=== PATIENT | male | born 1940 | race Caucasian/White ===

== ENCOUNTER 2021-11-28 20:23 | Emergency (ER) | payer MEDICARE, OTHER ==
[~2021-11-28] VITALS: Ht 188 cm; Wt 89.0 kg
[~2021-11-28 20:23] MED LIST: ASPIRIN EC81 MG PO; ATORVASTATIN CA20 MG PO; FOSINOPRIL SODI40 MG PO; HYDROCHLOROTH12.5 MG PO; NORVASC10 MG PO; PRILOSEC20 MG PO
[2021-11-28] MEDS ORDERED: TAMSULOSIN HCL0.4 MG PO (20:42)
[2021-11-28] MEDS ORDERED: MIRTAZAPINE7.5 MG PO (20:43)
[2021-11-28] MEDS ORDERED: CITALOPRAM HBR20 MG PO (20:44)
[2021-11-28] MEDS ORDERED: PAXLOVID CO-PA1 EAC1 PO (21:14)
== END 2021-11-28 21:47 | disposition home or self-care (01) ==
LOC: ED 20:23
DX: U07.1 COVID-19 (principal); I10 Essential (primary) hypertension; Z87.891 Personal history of nicotine dependence; Z79.899 Other long term (current) drug therapy
CPT/HCPCS: 71045; 87502; U0003

== ENCOUNTER 2022-12-23 15:22 | Emergency (ER) | payer MEDICARE, OTHER ==
[~2022-12-23] VITALS: Ht 188 cm; Wt 90.7 kg
--- OUTSIDE RECORDS SUMMARY | ~2022-12-23 | XMS | Continuity of Care Document ---
Demographics + + + | Address | [address] [place] [address] | | | [place] [address] | + + + | Preferred Language | Unknown | + + + | Marital Status | | + + + | Roman Catholic Affiliation | Unknown | + + + | Race | White | + + + | Ethnic Group | Not or | + + + Author + + + | Author | [facility] | + + + | Organization | [facility] | + + + | Address | [address] | | | [place] [address] | + + + | Phone | | + + + Care Team Providers + + + + | Care [employer] Presser Name | Role | Phone | + + + + Unavailable | Unavailable | + + + + Unavailable | Unavailable | + + + + Allergies No information. Encounters No information. Functional Status No information. Immunizations No information. Medications + + + + | date | description | facility | + + + + | 2021-12-18 00:00 | CITALOPRAM HYDROBROMIDE | [facility] | + + + + | 2021-12-18 00:00 | AMLODIPINE BESYLATE | [facility] | + + + + | 2021-11-28 00:00 | Nirmatrelvir/Ritonavir | [facility] | + + + + | 2021-12-18 00:00 | ASPIRIN | [facility] | + + + + | 2021-12-18 00:00 | MIRTAZAPINE | [facility] | + + + + | 2021-12-18 00:00 | ATORVASTATIN CALCIUM | [facility] | + + + + | 2021-12-18 00:00 | FOSINOPRIL SODIUM | [facility] | + + + + | 2021-12-18 00:00 | TAMSULOSIN HCL | [facility] | + + + + Problems + + + + | date | description | facility | + + + + | 2021-11-28 00:00 | Infection due to severe | [facility] | | | acute respiratory syndrome | | | | coronavirus 2 (SARS-CoV-2) | | + + + + | 2021-11-28 20:24 | Essential (primary) | [facility] | | | hypertension [facility] | + + + + | 2021-11-28 20:24 | Cough, unspecified | [facility] | | | | [facility] | + + + + | 2021-11-28 20:24 | COVID-19 | [facility] | | | | [facility] | + + + + | 2021-11-28 20:24 | Other [facility] (current) | [facility] | | | drug therapy | [facility] | + + + + | 2021-11-28 20:24 | Personal history of | [facility] | | | nicotine dependence | [facility] | + + + + Procedures No information. Results/Labs +--------+--------+ +---------+--------+---------+ | test | date | facility | value | unit | notes | +--------+--------+ +---------+--------+---------+ + + | Result panel 1 | + + + + + + + + + | | 2021-11-28 | [facility] | POSITIVE | (missing) | (missing) | | (unavailable | [facility]:30 [facility] | | | | + + + + + + + + + | Result panel 2 | + + + + + + + + + | | 2021-11-28 | [facility] | NEGATIVE | (missing) | (missing) | | (unavailable | 20:30 [facility] | | | | + + + + + + + + + | Result panel 3 | + + + + + + + + + | | 2021-11-28 | [facility] | NEGATIVE | (missing) | (missing) | | (unavailable | 20:30 [facility] | | | | + + + + + + + + + | Result panel 4 | + + + + + + + + + | | 2021-11-28 | [facility] | NEGATIVE | (missing) | (missing) | | [facility]unavailable | [facility]:30 [facility] | | | | + + + + + + + Social History No information. Vital Signs + + + +---------+ | date | measurement | value | units | + + + +---------+ | 2021-11-28 00:00 | BMI | 25.2 | kg/m2 | + + + +---------+ | 2021-11-28 00:00 | BP_diastolic | 70 | mmHg | + + + +---------+ | 2021-11-28 00:00 | BP_systolic | 118 | mmHg | + + + +---------+ | 2021-11-28 00:00 | heart_rate | 61 | /min | + + + +---------+ | 2021-11-28 00:00 | height_metric | 187.96 | cm | + + + +---------+ | 2021-11-28 00:00 | height_standard | 74 | in | + + + +---------+ | 2021-11-28 00:00 | o2_saturation | 97 | % | + + + +---------+ | 2021-11-28 00:00 | respiration_rate | 15 | /min | + + + +---------+ | 2021-11-28 00:00 | temperature_metric | 36.94 | C | | | | | | + + + +---------+ | 2021-11-28 00:00 | | 98.5 | F | | | temperature_standar | | | | | d | | | + + + +---------+ | 2021-11-28 00:00 | weight_metric | 89 | kg | + + + +---------+ | 2021-11-28 00:00 | weight_standard | 196.21 | lb | + + + +---------+"
--- OUTSIDE RECORDS SUMMARY | ~2022-12-23 | XMS | Continuity of Care Document ---
Demographics + + + | Address | [address] [place] [address] | | | [place] [address] | + + + | Preferred Language | Unknown | + + + | Marital Status | | + + + | Sikhism Affiliation | Unknown | + + + | Race | White | + + + | Ethnic Group | Not or | + + + Author + + + | Author | [facility] | + + + | Organization | [facility] | + + + | Address | [address] | | | [place] [address] | + + + | Phone | | + + + Care Team Providers + + + + | [employer] Name | Role | Phone | + + + + Unavailable | Unavailable | + + + + Unavailable | Unavailable | + + + + Allergies No information. Encounters No information. Functional Status No information. Immunizations No information. Medications + + + + | date | description | facility | + + + + | 2021-12-18 00:00 | CITALOPRAM HYDROBROMIDE | [facility] | + + + + | 2021-12-18 00:00 | AMLODIPINE BESYLATE | [facility] | + + + + | 2021-11-28 00:00 | Nirmatrelvir/Ritonavir | [facility] | + + + + | 2021-12-18 00:00 | ASPIRIN | [facility] | + + + + | 2021-12-18 00:00 | MIRTAZAPINE | [facility] | + + + + | 2021-12-18 00:00 | ATORVASTATIN CALCIUM | [facility] | + + + + | 2021-12-18 00:00 | FOSINOPRIL SODIUM | [facility] | + + + + | 2021-12-18 00:00 | TAMSULOSIN HCL | [facility] | + + + + Problems + + + + | date | description | facility | + + + + | 2021-11-28 00:00 | Infection due to severe | [facility] | | | acute respiratory syndrome [...] + + | 2021-11-28 20:24 | Other assisted (current) | [facility] | | | [...]
[~2022-12-23 15:22] MED LIST changes: +CITALOPRAM HBR20 MG PO; +MIRTAZAPINE7.5 MG PO; +PAXLOVID CO-PA1 EAC1 PO; +TAMSULOSIN HCL0.4 MG PO
[2022-12-23] MEDS ORDERED: LASIX20 MG PO (16:19)
[2022-12-23 16:41] VITALS: BP 130/80
== END 2022-12-23 16:44 | disposition home or self-care (01) ==
LOC: ED 15:22
DX: R60.0 Localized edema (principal); I10 Essential (primary) hypertension; Z79.899 Other long term (current) drug therapy; Z79.82 Long term (current) use of aspirin
CPT/HCPCS: 93971